=== PATIENT | male | born 1965 | race Caucasian/White ===

== ENCOUNTER 2017-02-28 16:47 | Inpatient (IN) | payer OTHER, MEDICAID ==
[2017-02-28] MEDS ORDERED: AZTREONAM 1 GM/NS (PMX) 50 ML IVPB (16:48)
[2017-02-28 17:33] LABS: ADD MAN DIFF? NO
[2017-02-28 17:35] LABS: BASOPHILS % 0.3 % (0.0-2.0); EOSINOPHILS # 0.2 10^3/ul (0.0-0.5); EOSINOPHILS % 2.6 % (0.0-7.0); HEMATOCRIT 31.9 % (42.0-52.0); HEMOGLOBIN 10.3 g/dl (14.0-18.0); LYMPHOCYTES # 2.3 10^3/ul (0.8-2.9); LYMPHOCYTES % 26.5 % (15.0-51.0); MEAN CORPUSCULAR HEMOGLOBIN 27.8 pg (29.0-33.0); MEAN CORPUSCULAR HGB CONC 32.3 g/dl (32.0-37.0); MEAN CORPUSCULAR VOLUME 86.2 fl (82.0-101.0); MONOCYTE # 0.8 10^3/ul (0.3-0.9); MONOCYTES % 9.2 % (0.0-11.0); NEUTROPHIL # 5.4 10^3/ul (1.6-7.5); NEUTROPHILS % 61.2 % (39.0-77.0); PLATELET COUNT 128 10^3/UL (140-415); POSITIVE DIFF @See below; RED CELL DISTRIBUTION WIDTH 13.8 % (11.5-14.5)
[2017-02-28 17:35] LABS: WHITE BLOOD COUNT 8.8 10^3/ul (4.8-10.8)
[2017-02-28 17:53] LABS: ALANINE AMINOTRANSFERASE 28 IU/L (13-69); ALBUMIN 3.8 g/dl (3.3-4.9); ALBUMIN/GLOBULIN RATIO 0.77; ALKALINE PHOSPHATASE 107 IU/L (42-121); ANION GAP 17 (8-16); ASPARTATE AMINO TRANSFERASE 25 IU/L (15-46); BILIRUBIN,INDIRECT 0.3 mg/dl (0-1.1); BILIRUBIN,TOTAL 0.3 mg/dl (0.2-1.3); BLOOD UREA NITROGEN 10 mg/dl (7-20); CALCIUM 8.7 mg/dl (8.4-10.2); CARBON DIOXIDE 24 mmol/L (21-31); CHLORIDE 102 mmol/L (97-110); CREATININE 0.91 mg/dl (0.61-1.24); GLUCOSE 110 mg/dl (70-220); SODIUM 139 mmol/L (135-144); TOTAL PROTEIN 8.7 g/dl (6.1-8.1)
[2017-02-28 17:54] LABS: INR 1.04; PROTIME 13.7 Sec (11.9-14.9); PT RATIO 1.1
[2017-02-28 17:55] LABS: PARTIAL THROMBOPLASTIN TIME 39.9 Sec (25.0-35.0)
[2017-02-28] MEDS ORDERED: ONDANSETRON 4 MG INJ IV ×2 (18:00→19:30)
[2017-02-28] MEDS ORDERED: ACETAMINOPHEN 325 MG TAB PO ×2 (18:00→19:30)
[2017-02-28 18:08] LABS: TROPONIN-I < 0.012 ng/ml (0.00-0.12)
[2017-02-28 18:26] LABS: ADD UMIC YES; UR ASCORBIC ACID 40 mg/dL (NEGATIVE); UR BILIRUBIN (Dip) NEGATIVE (NEGATIVE); UR BLOOD (Dip) NEGATIVE (NEGATIVE); UR CLARITY TURBID (CLEAR); UR COLOR YELLOW (YELLOW); UR GLUCOSE (Dip) NEGATIVE (NEGATIVE); UR KETONES (Dip) NEGATIVE (NEGATIVE); UR LEUKOCYTE ESTERASE (Dip) 3+ Leu/ul (NEGATIVE); UR NITRITE (Dip) NEGATIVE (NEGATIVE); UR RBC 21 /HPF (0-5); UR SPECIFIC GRAVITY (Dip) 1.016 (1.003-1.030); UR TOTAL PROTEIN (Dip) 2+ mg/dl (NEGATIVE); UR UROBILINOGEN (Dip) 2+ mg/dL (NEGATIVE); UR WBC > 182 /HPF (0-5)
[2017-02-28] MEDS: VANCOMYCIN 1 GM (PMX) 250 ML IVPB (18:51)
[2017-02-28] MEDS: SOD CHLORIDE 0.9% 1,000 ML IV ×4 (18:53→22:00)
[2017-02-28] MEDS ORDERED: VANCOMYCIN IV PER PHARMACY XX (19:30)
[2017-02-28] MEDS ORDERED: HYDROCODONE/APAP (5/325) TAB PO ×2 (19:30)
[2017-02-28] MEDS ORDERED: NACL 0.9% 3 ML SYG IV (19:30)
[2017-02-28 19:59] LABS: IRON 24 ug/dl (35-150)
[2017-02-28 20:08] LABS: % IRON SATURATION 11 % SAT (22-52); TOTAL IRON BINDING CAPACITY 216 ug/dl (241-421)
[2017-02-28] MEDS ORDERED: GLUCAGON 1 MG INJ IM (21:30)
[2017-02-28] MEDS ORDERED: GLUCOSE GEL 15 GRAM TUBE PO ×2 (21:30)
[2017-02-28] MEDS ORDERED: GLUCOSE GEL 15 GRAM TUBE BUCCAL (21:30)
[2017-02-28] MEDS ORDERED: DEXTROSE 50% 50 ML SYRINGE IV ×2 (21:30)
[2017-02-28 21:53] LABS: LACTIC ACID 0.9 mmol/L (0.5-2.0)
[2017-02-28] MEDS: ALBUTEROL/IPRATROPIUM (NEB) 3 ML AMP HHN (22:48)
[2017-02-28] MEDS: LEVALBUTEROL (NEB) 0.63 MG/3 ML AMP INH (22:57)
[2017-02-28] MEDS: LEVOFLOXACIN 750MG/D5W (PMX) 150 ML IVPB ×2 (23:00→23:10)
[2017-02-28] MEDS: QUETIAPINE 100 MG TAB PO (23:10)
[2017-02-28] MEDS: PANTOPRAZOLE (EC) 40 MG TAB PO (23:10)
[2017-02-28] MEDS: INSULIN GLARGINE [LANtus] 3 ML PEN SC (23:13)
[2017-02-28] MEDS: INSULIN ASPART [NOVOLOG] 3 ML PEN SC (23:17)
[2017-02-28] MEDS: GUAIFENESIN/CODEINE 5ML CUP PO (23:29)
[2017-02-28 23:31] LABS: LACTIC ACID 0.9 mmol/L (0.5-2.0)
[2017-03-01] MEDS: AZTREONAM 2 GM in DEXTROSE 5% 100 ML IVPB ×3 (00:33→21:30)
[2017-03-01] MEDS: VANCOMYCIN 1 GM in 250 ML IVPB (00:33)
[2017-03-01] MEDS: ACCU-CHEK XX (00:34)
[2017-03-01] MEDS: ACETAMINOPHEN 325 MG TAB PO (05:43)
[2017-03-01] MEDS: PANTOPRAZOLE (EC) 40 MG TAB PO ×2 (05:43→17:17)
[2017-03-01 06:00] LABS: ADD MAN DIFF? NO
[2017-03-01 06:12] LABS: BASOPHILS % 0.4 % (0.0-2.0); EOSINOPHILS # 0.3 10^3/ul (0.0-0.5); EOSINOPHILS % 3.6 % (0.0-7.0); HEMATOCRIT 29.1 % (42.0-52.0); HEMOGLOBIN 9.1 g/dl (14.0-18.0); LYMPHOCYTES # 1.9 10^3/ul (0.8-2.9); MEAN CORPUSCULAR HEMOGLOBIN 27.5 pg (29.0-33.0); MEAN CORPUSCULAR HGB CONC 31.3 g/dl (32.0-37.0); MEAN CORPUSCULAR VOLUME 87.9 fl (82.0-101.0); MEAN PLATELET VOLUME 11.8 fl (7.4-10.4); MONOCYTE # 0.7 10^3/ul (0.3-0.9); MONOCYTES % 9.5 % (0.0-11.0); NEUTROPHIL # 4.1 10^3/ul (1.6-7.5); NEUTROPHILS % 59.1 % (39.0-77.0); PLATELET COUNT 106 10^3/UL (140-415); POSITIVE DIFF @See below; RED BLOOD COUNT 3.31 10^6/ul (4.70-6.10); RED CELL DISTRIBUTION WIDTH 13.7 % (11.5-14.5)
[2017-03-01 06:12] LABS: WHITE BLOOD COUNT 6.9 10^3/ul (4.8-10.8)
[2017-03-01 06:37] LABS: ALBUMIN 3.4 g/dl (3.3-4.9); ANION GAP 16 (8-16); BLOOD UREA NITROGEN 9 mg/dl (7-20); CALCIUM 8.3 mg/dl (8.4-10.2); CARBON DIOXIDE 23 mmol/L (21-31); CHLORIDE 106 mmol/L (97-110); CREATININE 0.94 mg/dl (0.61-1.24); GLUCOSE 92 mg/dl (70-220); MAGNESIUM 1.8 mg/dl (1.7-2.5); PHOSPHORUS 5.4 mg/dl (2.5-4.9); POTASSIUM 3.6 mmol/L (3.5-5.1); SODIUM 141 mmol/L (135-144)
[2017-03-01 07:08] LABS: HEMOGLOBIN A1C 6.4 % (0-5.9)
[2017-03-01] MEDS: INSULIN ASPART [NOVOLOG] 3 ML PEN SC ×4 (08:00→21:00)
[2017-03-01] MEDS: ALBUTEROL/IPRATROPIUM (NEB) 3 ML AMP HHN ×4 (08:02→21:06)
[2017-03-01] MEDS: MAGNESIUM HYDROXIDE 30ML CUP PO (09:44)
[2017-03-01] MEDS: SENNA TAB PO (09:44)
[2017-03-01] MEDS: QUETIAPINE 100 MG TAB PO ×2 (09:45→21:30)
[2017-03-01] MEDS: MULTIVITAMINS/MINERALS TAB PO (09:45)
[2017-03-01] MEDS: ASCORBIC ACID 500 MG TAB PO (09:45)
[2017-03-01] MEDS: INSULIN GLARGINE [LANtus] 3 ML PEN SC ×3 (09:47→21:56)
[2017-03-01] MEDS: ENOXAPARIN 40 MG/0.4 ML SYG SC (09:48)
[2017-03-01] MEDS: VANCOMYCIN 1.5 GM in DEXTROSE 5% 500 ML IVPB (11:59)
[2017-03-01] MEDS: POTASSIUM CHLORIDE (SR) 20 MEQ TAB PO (12:28)
[2017-03-01] MEDS: POTASSIUM CHLORIDE 20 MEQ POWDER FOR ORAL SOLN PO (13:01)
[2017-03-01] MEDS: GUAIFENESIN/CODEINE 5ML CUP PO ×2 (13:25→21:33)
[2017-03-01] MEDS: LACTOBACILLUS RHAMNOSUS CAP PO (13:38)
[2017-03-01] MEDS: traZODone 50 MG TAB PO (21:30)
[2017-03-01] MEDS: LEVOFLOXACIN 750MG/D5W (PMX) 150 ML IVPB (23:51)
[2017-03-02] MEDS: ACCU-CHEK XX (02:00)
[2017-03-02 05:53] LABS: ADD MAN DIFF? NO
[2017-03-02 05:59] LABS: WHITE BLOOD COUNT 6.7 10^3/ul (4.8-10.8)
[2017-03-02 05:59] LABS: BASOPHILS % 0.6 % (0.0-2.0); EOSINOPHILS # 0.4 10^3/ul (0.0-0.5); EOSINOPHILS % 6.6 % (0.0-7.0); HEMATOCRIT 29.6 % (42.0-52.0); HEMOGLOBIN 9.4 g/dl (14.0-18.0); LYMPHOCYTES # 2.6 10^3/ul (0.8-2.9); LYMPHOCYTES % 38.2 % (15.0-51.0); MEAN CORPUSCULAR HGB CONC 31.8 g/dl (32.0-37.0); MEAN CORPUSCULAR VOLUME 88.1 fl (82.0-101.0); MEAN PLATELET VOLUME 12.2 fl (7.4-10.4); MONOCYTE # 0.6 10^3/ul (0.3-0.9); MONOCYTES % 8.9 % (0.0-11.0); NEUTROPHIL # 3.1 10^3/ul (1.6-7.5); NEUTROPHILS % 45.4 % (39.0-77.0); PLATELET COUNT 113 10^3/UL (140-415); RED BLOOD COUNT 3.36 10^6/ul (4.70-6.10); RED CELL DISTRIBUTION WIDTH 14.1 % (11.5-14.5)
[2017-03-02] MEDS: PANTOPRAZOLE (EC) 40 MG TAB PO ×2 (06:10→18:03)
[2017-03-02 06:23] LABS: ALBUMIN 3.4 g/dl (3.3-4.9); ANION GAP 15 (8-16); BLOOD UREA NITROGEN 9 mg/dl (7-20); CALCIUM 8.7 mg/dl (8.4-10.2); CARBON DIOXIDE 25 mmol/L (21-31); CHLORIDE 105 mmol/L (97-110); CREATININE 0.86 mg/dl (0.61-1.24); GLUCOSE 73 mg/dl (70-220); MAGNESIUM 1.9 mg/dl (1.7-2.5); POTASSIUM 4.1 mmol/L (3.5-5.1); SODIUM 141 mmol/L (135-144)
[2017-03-02] MEDS: ALBUTEROL/IPRATROPIUM (NEB) 3 ML AMP HHN ×4 (07:49→20:02)
[2017-03-02] MEDS: INSULIN ASPART [NOVOLOG] 3 ML PEN SC ×4 (08:00→21:00)
[2017-03-02] MEDS: MULTIVITAMINS/MINERALS TAB PO (08:55)
[2017-03-02] MEDS: MAGNESIUM HYDROXIDE 30ML CUP PO (08:55)
[2017-03-02] MEDS: LACTOBACILLUS RHAMNOSUS CAP PO (08:55)
[2017-03-02] MEDS: SENNA TAB PO (08:55)
[2017-03-02] MEDS: QUETIAPINE 100 MG TAB PO ×2 (08:55→21:42)
[2017-03-02] MEDS: ASCORBIC ACID 500 MG TAB PO (08:55)
[2017-03-02] MEDS: ENOXAPARIN 40 MG/0.4 ML SYG SC (09:02)
[2017-03-02] MEDS: INSULIN GLARGINE [LANtus] 3 ML PEN SC ×2 (09:02→21:44)
[2017-03-02] MEDS: CIPROFLOXACIN 250 MG TAB PO ×2 (11:59→18:03)
[2017-03-02] MEDS: FOSFOMYCIN 3 GM PACKET PO (16:47)
[2017-03-02] MEDS: traZODone 50 MG TAB PO (21:43)
[2017-03-02] MEDS: GUAIFENESIN/CODEINE 5ML CUP PO (23:21)
[2017-03-03] MEDS: ACCU-CHEK XX (02:00)
[2017-03-03 05:07] LABS: ADD MAN DIFF? NO
[2017-03-03 05:13] LABS: BASOPHILS % 0.7 % (0.0-2.0); EOSINOPHILS # 0.4 10^3/ul (0.0-0.5); HEMATOCRIT 31.1 % (42.0-52.0); HEMOGLOBIN 9.7 g/dl (14.0-18.0); LYMPHOCYTES % 35.9 % (15.0-51.0); MEAN CORPUSCULAR HEMOGLOBIN 27.6 pg (29.0-33.0); MEAN CORPUSCULAR HGB CONC 31.2 g/dl (32.0-37.0); MEAN CORPUSCULAR VOLUME 88.4 fl (82.0-101.0); MEAN PLATELET VOLUME 11.6 fl (7.4-10.4); MONOCYTE # 0.4 10^3/ul (0.3-0.9); MONOCYTES % 7.8 % (0.0-11.0); NEUTROPHIL # 2.6 10^3/ul (1.6-7.5); NEUTROPHILS % 47.2 % (39.0-77.0); PLATELET COUNT 110 10^3/UL (140-415); POSITIVE DIFF @See below; RED BLOOD COUNT 3.52 10^6/ul (4.70-6.10); RED CELL DISTRIBUTION WIDTH 13.7 % (11.5-14.5)
[2017-03-03 05:13] LABS: WHITE BLOOD COUNT 5.5 10^3/ul (4.8-10.8)
[2017-03-03 05:28] LABS: ALBUMIN 3.5 g/dl (3.3-4.9); ANION GAP 16 (8-16); BLOOD UREA NITROGEN 12 mg/dl (7-20); CALCIUM 8.6 mg/dl (8.4-10.2); CARBON DIOXIDE 26 mmol/L (21-31); CHLORIDE 105 mmol/L (97-110); CREATININE 0.89 mg/dl (0.61-1.24); GLUCOSE 115 mg/dl (70-220); PHOSPHORUS 5.7 mg/dl (2.5-4.9); POTASSIUM 3.9 mmol/L (3.5-5.1); SODIUM 143 mmol/L (135-144)
[2017-03-03] MEDS: CIPROFLOXACIN 250 MG TAB PO ×2 (05:44→17:22)
[2017-03-03] MEDS: PANTOPRAZOLE (EC) 40 MG TAB PO ×2 (05:44→17:22)
[2017-03-03] MEDS: INSULIN ASPART [NOVOLOG] 3 ML PEN SC ×4 (07:55→21:00)
[2017-03-03] MEDS: ALBUTEROL/IPRATROPIUM (NEB) 3 ML AMP HHN ×4 (08:30→20:10)
[2017-03-03] MEDS: ASCORBIC ACID 500 MG TAB PO (09:17)
[2017-03-03] MEDS: FERROUS SULFATE (EC) 325 MG TAB PO (09:17)
[2017-03-03] MEDS: LACTOBACILLUS RHAMNOSUS CAP PO (09:17)
[2017-03-03] MEDS: QUETIAPINE 100 MG TAB PO ×2 (09:17→21:15)
[2017-03-03] MEDS: MULTIVITAMINS/MINERALS TAB PO (09:17)
[2017-03-03] MEDS: MAGNESIUM HYDROXIDE 30ML CUP PO (09:21)
[2017-03-03] MEDS: SENNA TAB PO (09:21)
[2017-03-03] MEDS: INSULIN GLARGINE [LANtus] 3 ML PEN SC ×2 (09:24→21:20)
[2017-03-03] MEDS: ENOXAPARIN 40 MG/0.4 ML SYG SC (09:25)
[2017-03-03] MEDS ORDERED: BARIUM SULFATE 135 ML (E-Z HD) PO (12:35)
[2017-03-03] MEDS: LEVOFLOXACIN 500MG/D5W (PMX) 100 ML IVPB (18:22)
[2017-03-03] MEDS: traZODone 50 MG TAB PO (21:15)
[2017-03-03] MEDS: TOBRAMYCIN/0.25NS 300 MG/5 ML INHAL NEB (21:49)
[2017-03-03] MEDS: GUAIFENESIN/CODEINE 5ML CUP PO (22:34)
[2017-03-04] MEDS: ACCU-CHEK XX (02:00)
[2017-03-04 05:22] LABS: ADD MAN DIFF? NO
[2017-03-04 05:27] LABS: BASOPHILS % 0.7 % (0.0-2.0); EOSINOPHILS # 0.5 10^3/ul (0.0-0.5); EOSINOPHILS % 8.3 % (0.0-7.0); HEMATOCRIT 31.8 % (42.0-52.0); HEMOGLOBIN 10.1 g/dl (14.0-18.0); LYMPHOCYTES # 1.8 10^3/ul (0.8-2.9); LYMPHOCYTES % 31.8 % (15.0-51.0); MEAN CORPUSCULAR HEMOGLOBIN 27.7 pg (29.0-33.0); MEAN CORPUSCULAR HGB CONC 31.8 g/dl (32.0-37.0); MEAN CORPUSCULAR VOLUME 87.1 fl (82.0-101.0); MONOCYTE # 0.4 10^3/ul (0.3-0.9); MONOCYTES % 7.6 % (0.0-11.0); NEUTROPHILS % 51.1 % (39.0-77.0); PLATELET COUNT 102 10^3/UL (140-415); RED BLOOD COUNT 3.65 10^6/ul (4.70-6.10); RED CELL DISTRIBUTION WIDTH 13.8 % (11.5-14.5)
[2017-03-04 05:27] LABS: WHITE BLOOD COUNT 5.8 10^3/ul (4.8-10.8)
[2017-03-04] MEDS: PANTOPRAZOLE (EC) 40 MG TAB PO ×2 (06:07→17:25)
[2017-03-04] MEDS: INSULIN ASPART [NOVOLOG] 3 ML PEN SC ×4 (07:59→21:00)
[2017-03-04] MEDS: INSULIN GLARGINE [LANtus] 3 ML PEN SC ×2 (09:04→21:18)
[2017-03-04] MEDS: QUETIAPINE 100 MG TAB PO ×2 (09:06→21:08)
[2017-03-04] MEDS: ENOXAPARIN 40 MG/0.4 ML SYG SC (09:06)
[2017-03-04] MEDS: FERROUS SULFATE (EC) 325 MG TAB PO (09:06)
[2017-03-04] MEDS: LACTOBACILLUS RHAMNOSUS CAP PO (09:07)
[2017-03-04] MEDS: SENNA TAB PO (09:07)
[2017-03-04] MEDS: ASCORBIC ACID 500 MG TAB PO (09:07)
[2017-03-04] MEDS: MULTIVITAMINS/MINERALS TAB PO (09:07)
[2017-03-04] MEDS: MAGNESIUM HYDROXIDE 30ML CUP PO (09:08)
[2017-03-04] MEDS: ALBUTEROL/IPRATROPIUM (NEB) 3 ML AMP HHN ×4 (09:45→20:32)
[2017-03-04] MEDS: TOBRAMYCIN/0.25NS 300 MG/5 ML INHAL NEB ×2 (09:55→20:32)
[2017-03-04] MEDS ORDERED: BISACODYL 10 MG SUPP PR (13:30)
[2017-03-04] MEDS: LEVOFLOXACIN 500MG/D5W (PMX) 100 ML IVPB (17:25)
[2017-03-04] MEDS ORDERED: SENNA TAB (19:41)
[2017-03-04] MEDS: SENNA/DOCUSATE NA (8.6MG/50MG) TAB PO (21:00)
[2017-03-04] MEDS: traZODone 50 MG TAB PO (21:08)
[2017-03-04] MEDS: GUAIFENESIN/CODEINE 5ML CUP PO (22:47)
[2017-03-05] MEDS: ACCU-CHEK XX (02:00)
[2017-03-05] MEDS: PANTOPRAZOLE (EC) 40 MG TAB PO ×2 (05:18→17:32)
[2017-03-05 05:30] LABS: ADD MAN DIFF? NO
[2017-03-05 05:33] LABS: WHITE BLOOD COUNT 6.1 10^3/ul (4.8-10.8)
[2017-03-05 05:33] LABS: BASOPHILS % 0.5 % (0.0-2.0); EOSINOPHILS # 0.5 10^3/ul (0.0-0.5); EOSINOPHILS % 7.7 % (0.0-7.0); HEMATOCRIT 32.2 % (42.0-52.0); HEMOGLOBIN 10.3 g/dl (14.0-18.0); LYMPHOCYTES # 2.2 10^3/ul (0.8-2.9); LYMPHOCYTES % 36.1 % (15.0-51.0); MEAN CORPUSCULAR HEMOGLOBIN 27.6 pg (29.0-33.0); MEAN CORPUSCULAR VOLUME 86.3 fl (82.0-101.0); MEAN PLATELET VOLUME 12.1 fl (7.4-10.4); MONOCYTE # 0.5 10^3/ul (0.3-0.9); MONOCYTES % 8.7 % (0.0-11.0); NEUTROPHIL # 2.9 10^3/ul (1.6-7.5); NEUTROPHILS % 46.7 % (39.0-77.0); PLATELET COUNT 103 10^3/UL (140-415); RED BLOOD COUNT 3.73 10^6/ul (4.70-6.10); RED CELL DISTRIBUTION WIDTH 13.8 % (11.5-14.5)
[2017-03-05 06:06] LABS: ALBUMIN 3.8 g/dl (3.3-4.9); ANION GAP 17 (8-16); BLOOD UREA NITROGEN 15 mg/dl (7-20); CALCIUM 8.9 mg/dl (8.4-10.2); CARBON DIOXIDE 27 mmol/L (21-31); CHLORIDE 104 mmol/L (97-110); CREATININE 0.79 mg/dl (0.61-1.24); GLUCOSE 97 mg/dl (70-220); MAGNESIUM 1.8 mg/dl (1.7-2.5); PHOSPHORUS 5.4 mg/dl (2.5-4.9); POTASSIUM 4.2 mmol/L (3.5-5.1); SODIUM 144 mmol/L (135-144)
[2017-03-05] MEDS: INSULIN ASPART [NOVOLOG] 3 ML PEN SC ×4 (08:00→20:29)
[2017-03-05] MEDS: LEVALBUTEROL (NEB) 0.63 MG/3 ML AMP INH (08:29)
[2017-03-05] MEDS: ALBUTEROL/IPRATROPIUM (NEB) 3 ML AMP HHN ×4 (08:32→20:50)
[2017-03-05] MEDS: FERROUS SULFATE (EC) 325 MG TAB PO (08:41)
[2017-03-05] MEDS: QUETIAPINE 100 MG TAB PO ×2 (08:41→20:29)
[2017-03-05] MEDS: ASCORBIC ACID 500 MG TAB PO (08:41)
[2017-03-05] MEDS: MULTIVITAMINS/MINERALS TAB PO (08:41)
[2017-03-05] MEDS: ENOXAPARIN 40 MG/0.4 ML SYG SC (08:41)
[2017-03-05] MEDS: LACTOBACILLUS RHAMNOSUS CAP PO (08:41)
[2017-03-05] MEDS: MAGNESIUM HYDROXIDE 30ML CUP PO (08:42)
[2017-03-05] MEDS: SENNA/DOCUSATE NA (8.6MG/50MG) TAB PO ×2 (08:43→20:29)
[2017-03-05] MEDS: TOBRAMYCIN/0.25NS 300 MG/5 ML INHAL NEB ×2 (08:53→21:00)
[2017-03-05] MEDS: INSULIN GLARGINE [LANtus] 3 ML PEN SC ×2 (09:00→20:32)
[2017-03-05] MEDS: LEVOFLOXACIN 500MG/D5W (PMX) 100 ML IVPB (17:34)
[2017-03-05] MEDS: traZODone 50 MG TAB PO (20:29)
[2017-03-05] MEDS: GUAIFENESIN/CODEINE 5ML CUP PO (22:30)
[2017-03-05] MEDS: CEPASTAT LOZENGE MT (23:28)
[2017-03-06] MEDS: ACCU-CHEK XX (02:00)
[2017-03-06] MEDS: PANTOPRAZOLE (EC) 40 MG TAB PO ×2 (05:12→17:25)
[2017-03-06 05:49] LABS: ADD MAN DIFF? NO
[2017-03-06 06:05] LABS: ABNORMAL IP MESSAGE 1; BASOPHIL # 0.1 10^3/ul (0.0-0.1); BASOPHILS % 0.8 % (0.0-2.0); EOSINOPHILS # 0.4 10^3/ul (0.0-0.5); EOSINOPHILS % 5.6 % (0.0-7.0); HEMATOCRIT 33.6 % (42.0-52.0); HEMOGLOBIN 10.8 g/dl (14.0-18.0); LYMPHOCYTES # 2.2 10^3/ul (0.8-2.9); LYMPHOCYTES % 34.2 % (15.0-51.0); MEAN CORPUSCULAR HEMOGLOBIN 27.6 pg (29.0-33.0); MEAN CORPUSCULAR HGB CONC 32.1 g/dl (32.0-37.0); MEAN CORPUSCULAR VOLUME 85.9 fl (82.0-101.0); MEAN PLATELET VOLUME 11.8 fl (7.4-10.4); MONOCYTE # 0.5 10^3/ul (0.3-0.9); MONOCYTES % 7.5 % (0.0-11.0); NEUTROPHIL # 3.3 10^3/ul (1.6-7.5); NEUTROPHILS % 51.6 % (39.0-77.0); PLATELET COUNT 98 10^3/UL (140-415); POSITIVE DIFF @See below; RED BLOOD COUNT 3.91 10^6/ul (4.70-6.10); RED CELL DISTRIBUTION WIDTH 13.7 % (11.5-14.5)
[2017-03-06 06:05] LABS: WHITE BLOOD COUNT 6.4 10^3/ul (4.8-10.8)
[2017-03-06 06:42] LABS: ANION GAP 13 (8-16); BLOOD UREA NITROGEN 15 mg/dl (7-20); CALCIUM 9.2 mg/dl (8.4-10.2); CARBON DIOXIDE 27 mmol/L (21-31); CHLORIDE 105 mmol/L (97-110); CREATININE 0.79 mg/dl (0.61-1.24); GLUCOSE 93 mg/dl (70-220); MAGNESIUM 1.8 mg/dl (1.7-2.5); PHOSPHORUS 5.2 mg/dl (2.5-4.9); POTASSIUM 3.6 mmol/L (3.5-5.1); SODIUM 141 mmol/L (135-144)
[2017-03-06] MEDS: INSULIN ASPART [NOVOLOG] 3 ML PEN SC ×4 (08:00→21:00)
[2017-03-06] MEDS: TOBRAMYCIN/0.25NS 300 MG/5 ML INHAL NEB ×2 (08:04→20:21)
[2017-03-06] MEDS: ALBUTEROL/IPRATROPIUM (NEB) 3 ML AMP HHN ×4 (08:04→20:21)
[2017-03-06] MEDS: MAGNESIUM HYDROXIDE 30ML CUP PO ×2 (09:00→09:29)
[2017-03-06] MEDS: FERROUS SULFATE (EC) 325 MG TAB PO (09:29)
[2017-03-06] MEDS: QUETIAPINE 100 MG TAB PO ×2 (09:29→21:08)
[2017-03-06] MEDS: SENNA/DOCUSATE NA (8.6MG/50MG) TAB PO ×2 (09:29→21:08)
[2017-03-06] MEDS: LACTOBACILLUS RHAMNOSUS CAP PO (09:29)
[2017-03-06] MEDS: ASCORBIC ACID 500 MG TAB PO (09:29)
[2017-03-06] MEDS: MULTIVITAMINS/MINERALS TAB PO (09:29)
[2017-03-06] MEDS: ENOXAPARIN 40 MG/0.4 ML SYG SC (09:30)
[2017-03-06] MEDS: INSULIN GLARGINE [LANtus] 3 ML PEN SC (21:08)
[2017-03-06] MEDS: traZODone 50 MG TAB PO (21:08)
[2017-03-06] MEDS: GUAIFENESIN/CODEINE 5ML CUP PO (22:32)
[2017-03-07] MEDS: ACCU-CHEK XX (02:00)
[2017-03-07 05:47] LABS: ADD MAN DIFF? NO
[2017-03-07 05:55] LABS: ABNORMAL IP MESSAGE 1; BASOPHILS % 0.6 % (0.0-2.0); EOSINOPHILS # 0.3 10^3/ul (0.0-0.5); EOSINOPHILS % 4.8 % (0.0-7.0); HEMOGLOBIN 10.7 g/dl (14.0-18.0); LYMPHOCYTES # 1.9 10^3/ul (0.8-2.9); MEAN CORPUSCULAR HEMOGLOBIN 27.6 pg (29.0-33.0); MEAN CORPUSCULAR HGB CONC 32.4 g/dl (32.0-37.0); MEAN CORPUSCULAR VOLUME 85.1 fl (82.0-101.0); MEAN PLATELET VOLUME 12.7 fl (7.4-10.4); MONOCYTE # 0.4 10^3/ul (0.3-0.9); MONOCYTES % 8.3 % (0.0-11.0); NEUTROPHIL # 2.5 10^3/ul (1.6-7.5); NEUTROPHILS % 48.9 % (39.0-77.0); PLATELET COUNT 82 10^3/UL (140-415); POSITIVE DIFF @See below; RED BLOOD COUNT 3.88 10^6/ul (4.70-6.10)
[2017-03-07 05:55] LABS: WHITE BLOOD COUNT 5.2 10^3/ul (4.8-10.8)
[2017-03-07 06:11] LABS: ANION GAP 14 (8-16); BLOOD UREA NITROGEN 15 mg/dl (7-20); CALCIUM 9.3 mg/dl (8.4-10.2); CARBON DIOXIDE 27 mmol/L (21-31); CHLORIDE 104 mmol/L (97-110); CREATININE 0.79 mg/dl (0.61-1.24); GLUCOSE 114 mg/dl (70-220); MAGNESIUM 1.8 mg/dl (1.7-2.5); PHOSPHORUS 5.9 mg/dl (2.5-4.9); POTASSIUM 3.8 mmol/L (3.5-5.1); SODIUM 141 mmol/L (135-144)
[2017-03-07] MEDS: LEVOFLOXACIN 500 MG TAB PO (06:14)
[2017-03-07] MEDS: PANTOPRAZOLE (EC) 40 MG TAB PO ×2 (06:14→17:10)
[2017-03-07] MEDS: INSULIN ASPART [NOVOLOG] 3 ML PEN SC ×4 (08:00→21:00)
[2017-03-07] MEDS: ALBUTEROL/IPRATROPIUM (NEB) 3 ML AMP HHN ×4 (08:13→20:00)
[2017-03-07] MEDS: TOBRAMYCIN/0.25NS 300 MG/5 ML INHAL NEB (08:13)
[2017-03-07] MEDS: ENOXAPARIN 40 MG/0.4 ML SYG SC (08:36)
[2017-03-07] MEDS: QUETIAPINE 100 MG TAB PO ×2 (08:37→21:28)
[2017-03-07] MEDS: LACTOBACILLUS RHAMNOSUS CAP PO (08:37)
[2017-03-07] MEDS: MULTIVITAMINS/MINERALS TAB PO (08:37)
[2017-03-07] MEDS: SENNA/DOCUSATE NA (8.6MG/50MG) TAB PO ×2 (08:37→21:24)
[2017-03-07] MEDS: MAGNESIUM HYDROXIDE 30ML CUP PO (08:37)
[2017-03-07] MEDS: ASCORBIC ACID 500 MG TAB PO (08:37)
[2017-03-07] MEDS: FERROUS SULFATE (EC) 325 MG TAB PO (08:37)
[2017-03-07] MEDS: LORAZEPAM 2 MG INJ IV (15:55)
[2017-03-07] MEDS ORDERED: HYDROCODONE/APAP (5/325) TAB PO (16:00)
[2017-03-07] MEDS: BUDESONIDE (NEB) 0.5MG/2ML AMP HHN (19:59)
[2017-03-07] MEDS: traZODone 50 MG TAB PO (21:24)
[2017-03-07] MEDS: BENZONATATE 100 MG CAP PO (21:24)
[2017-03-07] MEDS: INSULIN GLARGINE [LANtus] 3 ML PEN SC (21:29)
[2017-03-07] MEDS ORDERED: LORAZEPAM 2 MG INJ IV (23:00)
[2017-03-08] MEDS: ACCU-CHEK XX (02:00)
[2017-03-08] MEDS: PANTOPRAZOLE (EC) 40 MG TAB PO ×2 (06:15→17:10)
[2017-03-08] MEDS: LEVOFLOXACIN 500 MG TAB PO (06:15)
[2017-03-08] MEDS: INSULIN ASPART [NOVOLOG] 3 ML PEN SC ×4 (08:00→20:40)
[2017-03-08] MEDS: FERROUS SULFATE (EC) 325 MG TAB PO (08:30)
[2017-03-08] MEDS: LACTOBACILLUS RHAMNOSUS CAP PO (08:30)
[2017-03-08] MEDS: MAGNESIUM HYDROXIDE 30ML CUP PO (08:30)
[2017-03-08] MEDS: ASCORBIC ACID 500 MG TAB PO (08:31)
[2017-03-08] MEDS: QUETIAPINE 100 MG TAB PO ×2 (08:31→20:41)
[2017-03-08] MEDS: SENNA/DOCUSATE NA (8.6MG/50MG) TAB PO ×2 (08:31→20:41)
[2017-03-08] MEDS: MULTIVITAMINS/MINERALS TAB PO (08:31)
[2017-03-08] MEDS: ENOXAPARIN 40 MG/0.4 ML SYG SC (08:33)
[2017-03-08] MEDS: BUDESONIDE (NEB) 0.5MG/2ML AMP HHN ×2 (09:15→20:01)
[2017-03-08] MEDS: ALBUTEROL/IPRATROPIUM (NEB) 3 ML AMP HHN ×4 (09:15→20:01)
[2017-03-08] MEDS: INSULIN GLARGINE [LANtus] 3 ML PEN SC (20:41)
[2017-03-08] MEDS: traZODone 50 MG TAB PO (20:41)
[2017-03-09] MEDS: ACCU-CHEK XX (02:00)
[2017-03-09 05:31] LABS: ADD MAN DIFF? NO
[2017-03-09 05:41] LABS: WHITE BLOOD COUNT 6.2 10^3/ul (4.8-10.8)
[2017-03-09 05:41] LABS: ABNORMAL IP MESSAGE 1; BASOPHILS % 0.5 % (0.0-2.0); EOSINOPHILS # 0.3 10^3/ul (0.0-0.5); EOSINOPHILS % 5.1 % (0.0-7.0); HEMATOCRIT 33.2 % (42.0-52.0); HEMOGLOBIN 10.8 g/dl (14.0-18.0); LYMPHOCYTES % 32.3 % (15.0-51.0); MEAN CORPUSCULAR HEMOGLOBIN 27.8 pg (29.0-33.0); MEAN CORPUSCULAR HGB CONC 32.5 g/dl (32.0-37.0); MEAN CORPUSCULAR VOLUME 85.3 fl (82.0-101.0); MEAN PLATELET VOLUME 13.1 fl (7.4-10.4); MONOCYTE # 0.5 10^3/ul (0.3-0.9); MONOCYTES % 7.9 % (0.0-11.0); NEUTROPHIL # 3.4 10^3/ul (1.6-7.5); NEUTROPHILS % 53.9 % (39.0-77.0); PLATELET COUNT 62 10^3/UL (140-415); POSITIVE DIFF @See below; RED BLOOD COUNT 3.89 10^6/ul (4.70-6.10); RED CELL DISTRIBUTION WIDTH 13.9 % (11.5-14.5)
[2017-03-09 06:01] LABS: ANION GAP 13 (8-16); BLOOD UREA NITROGEN 15 mg/dl (7-20); CALCIUM 9.1 mg/dl (8.4-10.2); CARBON DIOXIDE 27 mmol/L (21-31); CHLORIDE 104 mmol/L (97-110); GLUCOSE 106 mg/dl (70-220); MAGNESIUM 1.8 mg/dl (1.7-2.5); PHOSPHORUS 5.4 mg/dl (2.5-4.9); POTASSIUM 3.8 mmol/L (3.5-5.1); SODIUM 140 mmol/L (135-144)
[2017-03-09] MEDS: LEVOFLOXACIN 500 MG TAB PO (06:17)
[2017-03-09] MEDS: PANTOPRAZOLE (EC) 40 MG TAB PO ×2 (06:17→17:29)
[2017-03-09] MEDS: INSULIN ASPART [NOVOLOG] 3 ML PEN SC ×4 (08:00→21:00)
[2017-03-09] MEDS: ALBUTEROL/IPRATROPIUM (NEB) 3 ML AMP HHN ×4 (08:22→20:39)
[2017-03-09] MEDS: BUDESONIDE (NEB) 0.5MG/2ML AMP HHN ×2 (08:40→20:32)
[2017-03-09] MEDS: ASCORBIC ACID 500 MG TAB PO (09:40)
[2017-03-09] MEDS: QUETIAPINE 100 MG TAB PO ×2 (09:40→21:42)
[2017-03-09] MEDS: MAGNESIUM HYDROXIDE 30ML CUP PO (09:40)
[2017-03-09] MEDS: MULTIVITAMINS/MINERALS TAB PO (09:40)
[2017-03-09] MEDS: FERROUS SULFATE (EC) 325 MG TAB PO (09:40)
[2017-03-09] MEDS: LACTOBACILLUS RHAMNOSUS CAP PO (09:40)
[2017-03-09] MEDS: SENNA/DOCUSATE NA (8.6MG/50MG) TAB PO ×2 (09:40→21:42)
[2017-03-09] MEDS ORDERED: NYSTATIN 30 GM POWDER BTL TOP (21:00)
[2017-03-09] MEDS: NYSTATIN 15 GM POWDER BTL TOP (21:42)
[2017-03-09] MEDS: traZODone 50 MG TAB PO (21:42)
[2017-03-09] MEDS: INSULIN GLARGINE [LANtus] 3 ML PEN SC (21:44)
[2017-03-10] MEDS: ACCU-CHEK XX (02:00)
[2017-03-10 05:36] LABS: ADD MAN DIFF? NO
[2017-03-10 05:54] LABS: ABNORMAL IP MESSAGE 1; BASOPHILS % 0.7 % (0.0-2.0); EOSINOPHILS # 0.3 10^3/ul (0.0-0.5); EOSINOPHILS % 5.4 % (0.0-7.0); HEMATOCRIT 32.7 % (42.0-52.0); HEMOGLOBIN 10.7 g/dl (14.0-18.0); LYMPHOCYTES % 32.8 % (15.0-51.0); MEAN CORPUSCULAR HEMOGLOBIN 28.1 pg (29.0-33.0); MEAN CORPUSCULAR HGB CONC 32.7 g/dl (32.0-37.0); MEAN CORPUSCULAR VOLUME 85.8 fl (82.0-101.0); MONOCYTE # 0.5 10^3/ul (0.3-0.9); MONOCYTES % 7.9 % (0.0-11.0); NEUTROPHIL # 3.2 10^3/ul (1.6-7.5); NEUTROPHILS % 52.9 % (39.0-77.0); PLATELET COUNT 50 10^3/UL (140-415); POSITIVE DIFF @See below; RED BLOOD COUNT 3.81 10^6/ul (4.70-6.10)
[2017-03-10] MEDS: LEVOFLOXACIN 500 MG TAB PO (06:09)
[2017-03-10] MEDS: PANTOPRAZOLE (EC) 40 MG TAB PO ×2 (06:09→17:00)
[2017-03-10 06:15] LABS: ANION GAP 15 (8-16); BLOOD UREA NITROGEN 16 mg/dl (7-20); CALCIUM 9.3 mg/dl (8.4-10.2); CARBON DIOXIDE 27 mmol/L (21-31); CHLORIDE 103 mmol/L (97-110); CREATININE 0.88 mg/dl (0.61-1.24); GLUCOSE 127 mg/dl (70-220); MAGNESIUM 1.9 mg/dl (1.7-2.5); PHOSPHORUS 5.1 mg/dl (2.5-4.9); POTASSIUM 3.9 mmol/L (3.5-5.1); SODIUM 141 mmol/L (135-144)
[2017-03-10] MEDS: INSULIN ASPART [NOVOLOG] 3 ML PEN SC ×4 (08:00→22:07)
[2017-03-10] MEDS: MAGNESIUM HYDROXIDE 30ML CUP PO (09:00)
[2017-03-10] MEDS: SENNA/DOCUSATE NA (8.6MG/50MG) TAB PO ×2 (09:00→21:00)
[2017-03-10] MEDS: FERROUS SULFATE (EC) 325 MG TAB PO (09:54)
[2017-03-10] MEDS: LACTOBACILLUS RHAMNOSUS CAP PO (09:54)
[2017-03-10] MEDS: ASCORBIC ACID 500 MG TAB PO (09:55)
[2017-03-10] MEDS: MULTIVITAMINS/MINERALS TAB PO (09:55)
[2017-03-10] MEDS: NYSTATIN 15 GM POWDER BTL TOP ×2 (09:55→21:54)
[2017-03-10] MEDS: QUETIAPINE 100 MG TAB PO ×2 (09:55→21:53)
[2017-03-10] MEDS: ALBUTEROL/IPRATROPIUM (NEB) 3 ML AMP HHN ×4 (09:59→20:26)
[2017-03-10] MEDS: BUDESONIDE (NEB) 0.5MG/2ML AMP HHN ×2 (09:59→20:26)
[2017-03-10] MEDS: traZODone 50 MG TAB PO (21:53)
[2017-03-10] MEDS: L ACIDOPHIL/B LACTIS/B LONGUM CAPSULE PO (21:54)
[2017-03-10] MEDS: INSULIN GLARGINE [LANtus] 3 ML PEN SC (21:56)
[2017-03-11] MEDS: ACCU-CHEK XX (02:00)
[2017-03-11] MEDS: PANTOPRAZOLE (EC) 40 MG TAB PO ×2 (05:53→17:45)
[2017-03-11] MEDS: LEVOFLOXACIN 500 MG TAB PO (05:53)
[2017-03-11] MEDS: INSULIN ASPART [NOVOLOG] 3 ML PEN SC ×4 (08:00→20:01)
[2017-03-11] MEDS: ALBUTEROL/IPRATROPIUM (NEB) 3 ML AMP HHN ×4 (08:37→20:16)
[2017-03-11] MEDS: BUDESONIDE (NEB) 0.5MG/2ML AMP HHN ×2 (08:37→20:27)
[2017-03-11] MEDS: MAGNESIUM HYDROXIDE 30ML CUP PO (09:00)
[2017-03-11] MEDS: MULTIVITAMINS/MINERALS TAB PO (10:12)
[2017-03-11] MEDS: QUETIAPINE 100 MG TAB PO ×2 (10:12→20:01)
[2017-03-11] MEDS: L ACIDOPHIL/B LACTIS/B LONGUM CAPSULE PO ×2 (10:12→20:00)
[2017-03-11] MEDS: SENNA/DOCUSATE NA (8.6MG/50MG) TAB PO ×2 (10:12→20:01)
[2017-03-11] MEDS: ASCORBIC ACID 500 MG TAB PO (10:12)
[2017-03-11] MEDS: FERROUS SULFATE (EC) 325 MG TAB PO (10:12)
[2017-03-11] MEDS: NYSTATIN 15 GM POWDER BTL TOP ×2 (10:13→20:01)
[2017-03-11] MEDS: traZODone 50 MG TAB PO (20:01)
[2017-03-11] MEDS: INSULIN GLARGINE [LANtus] 3 ML PEN SC (20:03)
[2017-03-12] MEDS: ACCU-CHEK XX (02:00)
[2017-03-12 05:41] LABS: ADD MAN DIFF? NO
[2017-03-12 05:46] LABS: ABNORMAL IP MESSAGE 1; BASOPHIL # 0.1 10^3/ul (0.0-0.1); BASOPHILS % 0.8 % (0.0-2.0); EOSINOPHILS # 0.4 10^3/ul (0.0-0.5); HEMOGLOBIN 11.1 g/dl (14.0-18.0); LYMPHOCYTES # 2.1 10^3/ul (0.8-2.9); LYMPHOCYTES % 31.6 % (15.0-51.0); MEAN CORPUSCULAR HEMOGLOBIN 27.8 pg (29.0-33.0); MEAN CORPUSCULAR HGB CONC 32.6 g/dl (32.0-37.0); MONOCYTE # 0.5 10^3/ul (0.3-0.9); MONOCYTES % 7.5 % (0.0-11.0); NEUTROPHIL # 3.6 10^3/ul (1.6-7.5); NEUTROPHILS % 53.8 % (39.0-77.0); POSITIVE DIFF @See below; RED CELL DISTRIBUTION WIDTH 13.9 % (11.5-14.5)
[2017-03-12 05:46] LABS: WHITE BLOOD COUNT 6.6 10^3/ul (4.8-10.8)
[2017-03-12] MEDS: PANTOPRAZOLE (EC) 40 MG TAB PO ×2 (05:55→17:02)
[2017-03-12] MEDS: LEVOFLOXACIN 500 MG TAB PO (05:55)
[2017-03-12 06:05] LABS: ANION GAP 13 (8-16); BLOOD UREA NITROGEN 19 mg/dl (7-20); CALCIUM 9.4 mg/dl (8.4-10.2); CARBON DIOXIDE 28 mmol/L (21-31); CHLORIDE 103 mmol/L (97-110); CREATININE 0.81 mg/dl (0.61-1.24); GLUCOSE 97 mg/dl (70-220); MAGNESIUM 1.8 mg/dl (1.7-2.5); PHOSPHORUS 5.6 mg/dl (2.5-4.9); POTASSIUM 3.8 mmol/L (3.5-5.1); SODIUM 140 mmol/L (135-144)
[2017-03-12 06:34] LABS: PLATELET COUNT 36 10^3/UL (140-415)
[2017-03-12 06:38] LABS: HEPATITIS B SURFACE ANTIGEN NEGATIVE (NEGATIVE)
[2017-03-12 06:55] LABS: HEPATITIS B SURFACE ANTIBODY NEGATIVE (NEGATIVE)
[2017-03-12 06:56] LABS: HEPATITIS B CORE ANTIBODY NEGATIVE (NEGATIVE); HEPATITIS C VIRAL ANTIBODY NEGATIVE (NEGATIVE)
[2017-03-12] MEDS: INSULIN ASPART [NOVOLOG] 3 ML PEN SC ×4 (08:00→21:00)
[2017-03-12] MEDS: ALBUTEROL/IPRATROPIUM (NEB) 3 ML AMP HHN ×4 (08:14→20:24)
[2017-03-12] MEDS: BUDESONIDE (NEB) 0.5MG/2ML AMP HHN ×2 (08:14→20:24)
[2017-03-12] MEDS: NYSTATIN 15 GM POWDER BTL TOP ×2 (09:52→21:21)
[2017-03-12] MEDS: FERROUS SULFATE (EC) 325 MG TAB PO (09:52)
[2017-03-12] MEDS: MULTIVITAMINS/MINERALS TAB PO (09:52)
[2017-03-12] MEDS: SENNA/DOCUSATE NA (8.6MG/50MG) TAB PO ×2 (09:52→21:00)
[2017-03-12] MEDS: ASCORBIC ACID 500 MG TAB PO (09:52)
[2017-03-12] MEDS: MAGNESIUM HYDROXIDE 30ML CUP PO (09:52)
[2017-03-12] MEDS: L ACIDOPHIL/B LACTIS/B LONGUM CAPSULE PO ×2 (09:52→21:20)
[2017-03-12] MEDS: QUETIAPINE 100 MG TAB PO ×2 (09:52→21:20)
[2017-03-12] MEDS: DEXTROSE 5%-0.45% NACL 1,000 ML IV (13:36)
[2017-03-12] MEDS: traZODone 50 MG TAB PO (21:20)
[2017-03-12] MEDS: INSULIN GLARGINE [LANtus] 3 ML PEN SC (21:24)
[2017-03-13] MEDS: ACCU-CHEK XX (02:00)
[2017-03-13] MEDS: PANTOPRAZOLE (EC) 40 MG TAB PO ×2 (05:09→17:01)
[2017-03-13] MEDS: GUAIFENESIN/CODEINE 5ML CUP PO (05:09)
[2017-03-13] MEDS: CEPASTAT LOZENGE MT (05:45)
[2017-03-13] MEDS: INSULIN ASPART [NOVOLOG] 3 ML PEN SC ×4 (08:00→20:40)
[2017-03-13] MEDS: MAGNESIUM HYDROXIDE 30ML CUP PO (09:00)
[2017-03-13] MEDS: ALBUTEROL/IPRATROPIUM (NEB) 3 ML AMP HHN ×4 (09:00→20:14)
[2017-03-13] MEDS: SENNA/DOCUSATE NA (8.6MG/50MG) TAB PO ×2 (09:00→20:37)
[2017-03-13] MEDS: BUDESONIDE (NEB) 0.5MG/2ML AMP HHN ×2 (09:00→20:14)
[2017-03-13] MEDS: L ACIDOPHIL/B LACTIS/B LONGUM CAPSULE PO ×2 (09:56→20:37)
[2017-03-13] MEDS: FERROUS SULFATE (EC) 325 MG TAB PO (09:56)
[2017-03-13] MEDS: QUETIAPINE 100 MG TAB PO ×2 (09:57→20:37)
[2017-03-13] MEDS: MULTIVITAMINS/MINERALS TAB PO (09:57)
[2017-03-13] MEDS: NYSTATIN 15 GM POWDER BTL TOP ×2 (09:57→20:53)
[2017-03-13] MEDS: ASCORBIC ACID 500 MG TAB PO (09:57)
[2017-03-13 11:33] LABS: ADD MAN DIFF? NO
[2017-03-13 11:35] LABS: ABNORMAL IP MESSAGE 1; BASOPHILS % 0.5 % (0.0-2.0); EOSINOPHILS # 0.3 10^3/ul (0.0-0.5); EOSINOPHILS % 3.1 % (0.0-7.0); LYMPHOCYTES # 2.5 10^3/ul (0.8-2.9); LYMPHOCYTES % 30.3 % (15.0-51.0); MEAN CORPUSCULAR HEMOGLOBIN 27.6 pg (29.0-33.0); MEAN CORPUSCULAR HGB CONC 32.4 g/dl (32.0-37.0); MEAN CORPUSCULAR VOLUME 85.3 fl (82.0-101.0); MONOCYTE # 0.6 10^3/ul (0.3-0.9); MONOCYTES % 7.6 % (0.0-11.0); NEUTROPHIL # 4.9 10^3/ul (1.6-7.5); NEUTROPHILS % 58.3 % (39.0-77.0); RED BLOOD COUNT 4.34 10^6/ul (4.70-6.10)
[2017-03-13 11:35] LABS: WHITE BLOOD COUNT 8.3 10^3/ul (4.8-10.8)
[2017-03-13 11:50] LABS: PLATELET COUNT 44 10^3/UL (140-415)
[2017-03-13 12:23] LABS: ALBUMIN 4.1 g/dl (3.3-4.9); ANION GAP 14 (8-16); BLOOD UREA NITROGEN 17 mg/dl (7-20); CALCIUM 9.7 mg/dl (8.4-10.2); CARBON DIOXIDE 28 mmol/L (21-31); CHLORIDE 102 mmol/L (97-110); CREATININE 0.82 mg/dl (0.61-1.24); GLUCOSE 148 mg/dl (70-220); MAGNESIUM 1.7 mg/dl (1.7-2.5); PHOSPHORUS 5.7 mg/dl (2.5-4.9); SODIUM 140 mmol/L (135-144)
[2017-03-13] MEDS: BENZONATATE 100 MG CAP PO (17:01)
[2017-03-13] MEDS: traZODone 50 MG TAB PO (20:37)
[2017-03-13] MEDS: INSULIN GLARGINE [LANtus] 3 ML PEN SC (20:39)
[2017-03-13] MEDS: SALINE 0.65% 45 ML NAS SPRAY NASAL (20:42)
[2017-03-13 23:12] LABS: HEPARIN INDUCED PLATELET AB WEAK POSITIVE (NEGATIVE)
[2017-03-14] MEDS: ACCU-CHEK XX (01:43)
[2017-03-14] MEDS: PANTOPRAZOLE (EC) 40 MG TAB PO ×2 (05:31→17:29)
[2017-03-14 05:39] LABS: ADD MAN DIFF? NO
[2017-03-14 05:42] LABS: WHITE BLOOD COUNT 4.7 10^3/ul (4.8-10.8)
[2017-03-14 05:42] LABS: ABNORMAL IP MESSAGE 1; BASOPHIL # 0.1 10^3/ul (0.0-0.1); BASOPHILS % 1.1 % (0.0-2.0); EOSINOPHILS # 0.3 10^3/ul (0.0-0.5); EOSINOPHILS % 5.3 % (0.0-7.0); HEMATOCRIT 34.3 % (42.0-52.0); HEMOGLOBIN 11.2 g/dl (14.0-18.0); LYMPHOCYTES # 1.8 10^3/ul (0.8-2.9); LYMPHOCYTES % 38.4 % (15.0-51.0); MEAN CORPUSCULAR HEMOGLOBIN 27.7 pg (29.0-33.0); MEAN CORPUSCULAR HGB CONC 32.7 g/dl (32.0-37.0); MEAN CORPUSCULAR VOLUME 84.7 fl (82.0-101.0); MEAN PLATELET VOLUME 13.5 fl (7.4-10.4); MONOCYTE # 0.4 10^3/ul (0.3-0.9); MONOCYTES % 9.3 % (0.0-11.0); NEUTROPHIL # 2.2 10^3/ul (1.6-7.5); NEUTROPHILS % 45.7 % (39.0-77.0); PLATELET COUNT 45 10^3/UL (140-415); POSITIVE DIFF @See below; RED BLOOD COUNT 4.05 10^6/ul (4.70-6.10); RED CELL DISTRIBUTION WIDTH 14.2 % (11.5-14.5)
[2017-03-14 06:02] LABS: ANION GAP 15 (8-16); BLOOD UREA NITROGEN 16 mg/dl (7-20); CALCIUM 9.3 mg/dl (8.4-10.2); CARBON DIOXIDE 27 mmol/L (21-31); CHLORIDE 103 mmol/L (97-110); GLUCOSE 120 mg/dl (70-220); MAGNESIUM 1.8 mg/dl (1.7-2.5); PHOSPHORUS 5.4 mg/dl (2.5-4.9); POTASSIUM 3.9 mmol/L (3.5-5.1); SODIUM 141 mmol/L (135-144)
[2017-03-14] MEDS: BUDESONIDE (NEB) 0.5MG/2ML AMP HHN ×2 (07:50→21:36)
[2017-03-14] MEDS: ALBUTEROL/IPRATROPIUM (NEB) 3 ML AMP HHN ×4 (07:50→21:36)
[2017-03-14] MEDS: INSULIN ASPART [NOVOLOG] 3 ML PEN SC ×4 (08:00→20:32)
[2017-03-14] MEDS: MAGNESIUM HYDROXIDE 30ML CUP PO ×2 (09:00→09:32)
[2017-03-14] MEDS: FERROUS SULFATE (EC) 325 MG TAB PO (09:32)
[2017-03-14] MEDS: SENNA/DOCUSATE NA (8.6MG/50MG) TAB PO ×2 (09:32→20:26)
[2017-03-14] MEDS: SALINE 0.65% 45 ML NAS SPRAY NASAL ×2 (09:32→20:33)
[2017-03-14] MEDS: ASCORBIC ACID 500 MG TAB PO (09:32)
[2017-03-14] MEDS: MULTIVITAMINS/MINERALS TAB PO (09:32)
[2017-03-14] MEDS: L ACIDOPHIL/B LACTIS/B LONGUM CAPSULE PO ×2 (09:32→20:25)
[2017-03-14] MEDS: QUETIAPINE 100 MG TAB PO ×2 (09:32→20:25)
[2017-03-14] MEDS: NYSTATIN 15 GM POWDER BTL TOP ×2 (09:33→20:35)
[2017-03-14] MEDS: traZODone 50 MG TAB PO (20:25)
[2017-03-14] MEDS: INSULIN GLARGINE [LANtus] 3 ML PEN SC (20:31)
[2017-03-15] MEDS: ACCU-CHEK XX (02:00)
[2017-03-15] MEDS: PANTOPRAZOLE (EC) 40 MG TAB PO ×2 (05:46→17:09)
[2017-03-15] MEDS: INSULIN ASPART [NOVOLOG] 3 ML PEN SC ×4 (08:00→21:00)
[2017-03-15] MEDS: SENNA/DOCUSATE NA (8.6MG/50MG) TAB PO ×2 (09:00→21:00)
[2017-03-15] MEDS: BUDESONIDE (NEB) 0.5MG/2ML AMP HHN ×2 (09:00→20:44)
[2017-03-15] MEDS: MAGNESIUM HYDROXIDE 30ML CUP PO (09:00)
[2017-03-15] MEDS: ALBUTEROL/IPRATROPIUM (NEB) 3 ML AMP HHN ×4 (09:00→20:44)
[2017-03-15] MEDS: MULTIVITAMINS/MINERALS TAB PO (09:19)
[2017-03-15] MEDS: QUETIAPINE 100 MG TAB PO ×2 (09:19→21:00)
[2017-03-15] MEDS: L ACIDOPHIL/B LACTIS/B LONGUM CAPSULE PO ×2 (09:19→21:00)
[2017-03-15] MEDS: ASCORBIC ACID 500 MG TAB PO (09:19)
[2017-03-15] MEDS: FERROUS SULFATE (EC) 325 MG TAB PO (09:20)
[2017-03-15] MEDS: NYSTATIN 15 GM POWDER BTL TOP ×2 (09:21→21:01)
[2017-03-15] MEDS: SALINE 0.65% 45 ML NAS SPRAY NASAL ×2 (09:22→21:01)
[2017-03-15] MEDS: traZODone 50 MG TAB PO (21:00)
[2017-03-15] MEDS: INSULIN GLARGINE [LANtus] 3 ML PEN SC (21:04)
[2017-03-16] MEDS: ACCU-CHEK XX (01:59)
[2017-03-16] MEDS: PANTOPRAZOLE (EC) 40 MG TAB PO ×2 (06:00→17:18)
[2017-03-16] MEDS: INSULIN ASPART [NOVOLOG] 3 ML PEN SC ×4 (08:00→21:00)
[2017-03-16] MEDS: ALBUTEROL/IPRATROPIUM (NEB) 3 ML AMP HHN ×4 (08:24→20:32)
[2017-03-16] MEDS: QUETIAPINE 100 MG TAB PO ×2 (08:35→21:03)
[2017-03-16] MEDS: ASCORBIC ACID 500 MG TAB PO (08:35)
[2017-03-16] MEDS: FERROUS SULFATE (EC) 325 MG TAB PO (08:35)
[2017-03-16] MEDS: MULTIVITAMINS/MINERALS TAB PO (08:35)
[2017-03-16] MEDS: L ACIDOPHIL/B LACTIS/B LONGUM CAPSULE PO ×2 (08:35→21:03)
[2017-03-16] MEDS: SALINE 0.65% 45 ML NAS SPRAY NASAL ×2 (08:36→21:04)
[2017-03-16] MEDS: SENNA/DOCUSATE NA (8.6MG/50MG) TAB PO ×2 (08:37→21:03)
[2017-03-16] MEDS: NYSTATIN 15 GM POWDER BTL TOP ×2 (08:37→21:04)
[2017-03-16] MEDS: MAGNESIUM HYDROXIDE 30ML CUP PO (08:37)
[2017-03-16] MEDS: BUDESONIDE (NEB) 0.5MG/2ML AMP HHN ×2 (09:00→20:32)
[2017-03-16] MEDS: traZODone 50 MG TAB PO (21:03)
[2017-03-16] MEDS: INSULIN GLARGINE [LANtus] 3 ML PEN SC (21:03)
[2017-03-17] MEDS: ACCU-CHEK XX (02:00)
[2017-03-17] MEDS: PANTOPRAZOLE (EC) 40 MG TAB PO ×2 (05:40→18:00)
[2017-03-17] MEDS: INSULIN ASPART [NOVOLOG] 3 ML PEN SC ×4 (08:00→21:00)
[2017-03-17] MEDS: BUDESONIDE (NEB) 0.5MG/2ML AMP HHN ×2 (08:08→20:57)
[2017-03-17] MEDS: ALBUTEROL/IPRATROPIUM (NEB) 3 ML AMP HHN ×4 (08:08→20:57)
[2017-03-17] MEDS: MAGNESIUM HYDROXIDE 30ML CUP PO (09:00)
[2017-03-17] MEDS: L ACIDOPHIL/B LACTIS/B LONGUM CAPSULE PO ×2 (09:24→21:17)
[2017-03-17] MEDS: MULTIVITAMINS/MINERALS TAB PO (09:24)
[2017-03-17] MEDS: ASCORBIC ACID 500 MG TAB PO (09:24)
[2017-03-17] MEDS: morphine 2 MG INJ IV (09:24)
[2017-03-17] MEDS: SENNA/DOCUSATE NA (8.6MG/50MG) TAB PO ×2 (09:24→21:47)
[2017-03-17] MEDS: FERROUS SULFATE (EC) 325 MG TAB PO (09:25)
[2017-03-17] MEDS: QUETIAPINE 100 MG TAB PO ×2 (09:25→21:17)
[2017-03-17] MEDS: SALINE 0.65% 45 ML NAS SPRAY NASAL ×2 (09:29→21:18)
[2017-03-17] MEDS: NYSTATIN 15 GM POWDER BTL TOP ×2 (09:29→21:18)
[2017-03-17] MEDS: traZODone 50 MG TAB PO (21:17)
[2017-03-17] MEDS: INSULIN GLARGINE [LANtus] 3 ML PEN SC (21:19)
[2017-03-18] MEDS: ACCU-CHEK XX (02:00)
[2017-03-18] MEDS: PANTOPRAZOLE (EC) 40 MG TAB PO ×2 (05:52→17:03)
[2017-03-18] MEDS: INSULIN ASPART [NOVOLOG] 3 ML PEN SC ×4 (08:00→21:00)
[2017-03-18] MEDS: MULTIVITAMINS/MINERALS TAB PO (08:40)
[2017-03-18] MEDS: QUETIAPINE 100 MG TAB PO ×2 (08:40→21:14)
[2017-03-18] MEDS: L ACIDOPHIL/B LACTIS/B LONGUM CAPSULE PO ×2 (08:40→21:10)
[2017-03-18] MEDS: ASCORBIC ACID 500 MG TAB PO (08:40)
[2017-03-18] MEDS: FERROUS SULFATE (EC) 325 MG TAB PO (08:40)
[2017-03-18] MEDS: MAGNESIUM HYDROXIDE 30ML CUP PO (09:00)
[2017-03-18] MEDS: SALINE 0.65% 45 ML NAS SPRAY NASAL ×2 (09:00→21:15)
[2017-03-18] MEDS: NYSTATIN 15 GM POWDER BTL TOP ×2 (09:00→21:15)
[2017-03-18] MEDS: SENNA/DOCUSATE NA (8.6MG/50MG) TAB PO ×2 (09:00→21:10)
[2017-03-18] MEDS: BUDESONIDE (NEB) 0.5MG/2ML AMP HHN ×2 (09:16→20:00)
[2017-03-18] MEDS: ALBUTEROL/IPRATROPIUM (NEB) 3 ML AMP HHN ×4 (09:16→21:40)
[2017-03-18] MEDS: traZODone 50 MG TAB PO (21:10)
[2017-03-18] MEDS: INSULIN GLARGINE [LANtus] 3 ML PEN SC (22:39)
[2017-03-19] MEDS: ACCU-CHEK XX (02:00)
[2017-03-19] MEDS: PANTOPRAZOLE (EC) 40 MG TAB PO ×2 (06:11→17:28)
[2017-03-19] MEDS: INSULIN ASPART [NOVOLOG] 3 ML PEN SC ×4 (07:57→21:00)
[2017-03-19] MEDS: MULTIVITAMINS/MINERALS TAB PO (08:38)
[2017-03-19] MEDS: SALINE 0.65% 45 ML NAS SPRAY NASAL ×2 (08:38→22:36)
[2017-03-19] MEDS: MAGNESIUM HYDROXIDE 30ML CUP PO ×2 (08:38→08:45)
[2017-03-19] MEDS: FERROUS SULFATE (EC) 325 MG TAB PO (08:38)
[2017-03-19] MEDS: L ACIDOPHIL/B LACTIS/B LONGUM CAPSULE PO ×2 (08:38→22:30)
[2017-03-19] MEDS: SENNA/DOCUSATE NA (8.6MG/50MG) TAB PO ×2 (08:38→22:31)
[2017-03-19] MEDS: ASCORBIC ACID 500 MG TAB PO (08:38)
[2017-03-19] MEDS: NYSTATIN 15 GM POWDER BTL TOP ×2 (08:41→22:36)
[2017-03-19] MEDS: BUDESONIDE (NEB) 0.5MG/2ML AMP HHN ×2 (10:41→22:53)
[2017-03-19] MEDS: ALBUTEROL/IPRATROPIUM (NEB) 3 ML AMP HHN ×4 (10:41→22:53)
[2017-03-19] MEDS: QUETIAPINE 100 MG TAB PO ×2 (11:35→22:38)
[2017-03-19] MEDS: traZODone 50 MG TAB PO (22:31)
[2017-03-19] MEDS: INSULIN GLARGINE [LANtus] 3 ML PEN SC (22:33)
[2017-03-20] MEDS: ACCU-CHEK XX (01:14)
[2017-03-20] MEDS: PANTOPRAZOLE (EC) 40 MG TAB PO (05:46)
[2017-03-20] MEDS: INSULIN ASPART [NOVOLOG] 3 ML PEN SC ×2 (08:00→12:00)
[2017-03-20] MEDS: SALINE 0.65% 45 ML NAS SPRAY NASAL (08:20)
[2017-03-20] MEDS: NYSTATIN 15 GM POWDER BTL TOP (08:20)
[2017-03-20] MEDS: L ACIDOPHIL/B LACTIS/B LONGUM CAPSULE PO (08:21)
[2017-03-20] MEDS: SENNA/DOCUSATE NA (8.6MG/50MG) TAB PO (08:21)
[2017-03-20] MEDS: MULTIVITAMINS/MINERALS TAB PO (08:21)
[2017-03-20] MEDS: ASCORBIC ACID 500 MG TAB PO (08:21)
[2017-03-20] MEDS: MAGNESIUM HYDROXIDE 30ML CUP PO (08:21)
[2017-03-20] MEDS: FERROUS SULFATE (EC) 325 MG TAB PO (08:21)
[2017-03-20] MEDS: QUETIAPINE 100 MG TAB PO (08:21)
[2017-03-20] MEDS: ALBUTEROL/IPRATROPIUM (NEB) 3 ML AMP HHN (09:15)
[2017-03-20] MEDS: BUDESONIDE (NEB) 0.5MG/2ML AMP HHN (09:25)
== END 2017-03-20 16:43 | DRG 189 ==
LOC: E/R 16:47 → PP2 17:52
PROC: 0DP6XUZ Removal of Feeding Device from Stomach, External Approach (ICD-10-PCS; principal; 2017-03-12 18:50)
DX: J96.21 Acute and chronic respiratory failure with hypoxia (principal); J18.9 Pneumonia, unspecified organism; G82.20 Paraplegia, unspecified; R65.10 Systemic inflammatory response syndrome (SIRS) of non-infectious origin without acute organ dysfunction; D69.6 Thrombocytopenia, unspecified; Z93.0 Tracheostomy status; R13.10 Dysphagia, unspecified; N39.0 Urinary tract infection, site not specified; J98.11 Atelectasis; Z93.1 Gastrostomy status; B36.9 Superficial mycosis, unspecified; E11.9 Type 2 diabetes mellitus without complications; B96.5 Pseudomonas (aeruginosa) (mallei) (pseudomallei) as the cause of diseases classified elsewhere; B95.2 Enterococcus as the cause of diseases classified elsewhere; D64.9 Anemia, unspecified; J20.9 Acute bronchitis, unspecified; Z79.4 Long term (current) use of insulin; Z87.891 Personal history of nicotine dependence; F15.21 Other stimulant dependence, in remission; F11.21 Opioid dependence, in remission; Z16.21 Resistance to vancomycin
CPT/HCPCS: 36415; 71045; 74230; 80048; 80053; 80069; 81001; 82962; 83036; 83540; 83605; 83735; 84100; 84484; 85025; 85610; 85730; 86022; 86704; 86706; 86803; 87040; 87070; 87086; 87340; 87400; 92526; 92610; 92611; 93005; 94640; 94664; 96374; 97003; 97110; 97162; 97167; 97530; 97535; 99291-25